=== PATIENT | male | born 1960 | race Caucasian/White ===

== ENCOUNTER 2021-08-05 20:22 | Inpatient (IN) | payer OTHER, SELFPAY ==
[~2021-08-05] VITALS: Ht 165.1 cm; Wt 85.7 kg
[2021-08-05 20:34] VITALS: BP 147/90
--- NOTE | 2021-08-05 20:45 | NUR ---
PT BROUGHT TO BED 11 VIA [facility]
[2021-08-05] MEDS ORDERED: ONDANSETRON 4 MG/2 ML VIAL IVP ONE (21:05)
[2021-08-05] MEDS ORDERED: MORPHINE SULFATE 4 MG/ML SYR IVP ONE (21:05)
[2021-08-05] MEDS ORDERED: NACL 0.9% 1,000 ML IV SCH (21:05)
--- NOTE | 2021-08-05 21:30 | NUR ---
received pt from EMS and placed to bed 11. pt currently a/o x 4, gcs 15. able to move all extremities freely. pt is a 61 year old male with hx of DM biba from home for c/o R hemisphere abd pain that started 1 week ago. per pt , was seen at [place] yesterday and dx of gallstones with rx of tylenol. sts no relief from tylenol. pt reports nausea but no vomiting. given 2mg zofran ODT en route by EMS with no relief. NAD at this time.
[2021-08-05 21:44] LABS: BASOPHILS % (AUTO) 0.2 % (0.0-2.0); HEMATOCRIT 42.7 % (36-52); HEMOGLOBIN 15.1 g/dL (12.0-18.0); LYMPHOCYTES # (AUTO) 0.5 K/uL (2.0-11.5); LYMPHOCYTES % (AUTO) 4.7 % (20.5-51.1); MEAN CORPUSCULAR HEMOGLOBIN 30 pg (27-31); MEAN CORPUSCULAR HGB CONC 35 g/dL (33-37); MEAN CORPUSCULAR VOLUME 85.7 fL (80-94); MONOCYTES # (AUTO) 0.3 K/uL (0.8-1.0); NEUTROPHILS # (AUTO) 9.4 K/uL (1.8-7.7); NEUTROPHILS % (AUTO) 92.1 % (42.2-75.2); PLATELET COUNT (AUTO) 150 K/uL (140-450); RED BLOOD CELL COUNT(AUTO) 4.98 MIL/uL (4.20-6.10); RED CELL DISTRIBUTION WIDTH 13.8 % (11.6-13.7); WHITE BLOOD COUNT (AUTO) 10.2 K/uL (4.8-10.8)
[2021-08-05 22:05] LABS: APPEARANCE,URINE CLEAR (CLEAR); BILIRUBIN,URINE NEGATIVE (NEGATIVE); BLOOD, URINE TRACE-L (NEGATIVE); COLOR,URINE YELLOW (YELLOW); LEUKOCYTE ESTERASE ,URINE NEGATIVE (NEGATIVE); NITRITE, URINE NEGATIVE (NEGATIVE); UGLUCOSE 3+ (NEGATIVE)
[2021-08-05 22:10] LABS: RBC,URINE 0-5 /HPF (0-5); WBC,URINE 0-5 /HPF (0-5)
[2021-08-05 22:12] LABS: ALBUMIN 3.6 g/dL (3.4-5.0); ANION GAP 11.7 (8-16); CARBON DIOXIDE 28.6 mmol/L (21-32); CREATININE 0.9 mg/dL (0.6-1.3); POTASSIUM 3.3 mmol/L (3.5-5.1); TOTAL BILIRUBIN 1.6 mg/dL (0.0-1.0)
[2021-08-05] MEDS ORDERED: KETOROLAC 15 MG/ML VIAL IVP ONE (22:50)
[2021-08-05] MEDS ORDERED: metroNIDAZOLE 500 MG/NS PREMIX 100 ML IV ONE (22:50)
[2021-08-05] MEDS ORDERED: NACL 0.9% 1,000 ML IV ONE (23:20)
[2021-08-05] MEDS ORDERED: cefTRIAXone 1,000 MG VIAL ONE (23:50)
--- NOTE | 2021-08-06 | NUR ---
NAD at this time. pt currently asleep. arousable via verbal stimuli. reports 5/10 pain still for R abd.
[2021-08-06] MEDS ORDERED: ACETAMINOPHEN 325 MG TAB PO PRN (00:50)
[2021-08-06] MEDS ORDERED: DEXTROSE 50% 50 ML SYR IVP PRN (00:50)
[2021-08-06] MEDS: NACL 0.9% 1,000 ML IV SCH ×3 (01:33→23:20)
--- NOTE | 2021-08-06 02:30 | NUR ---
pt denies any needs at this time. NAD. VSS
[2021-08-06] MEDS: metroNIDAZOLE 500 MG/NS PREMIX 100 ML IV SCH ×3 (05:08→23:52)
--- NOTE | 2021-08-06 05:30 | NUR ---
NAD VSS. asleep at this time. arousable via verbal stimuli.
--- NOTE | 2021-08-06 07:37 | NUR ---
REPORT RECEIVED FROM DOMINIQUE DEVLIN FOR TRANSFER OF CARE
[2021-08-06] MEDS: BLOOD GLUCOSE MONITORING 1 DEV DEV FS SCH ×6 (07:56→22:30)
--- NOTE | 2021-08-06 07:57 | NUR ---
PT SLEEPING, EASILY AROUSABLE, VSS, C/O ABD PAIN 9/10 TO RUQ.
[2021-08-06] MEDS: INSULIN LISPRO SLIDING SCALE 100 UNITS/ML VIAL SUBQ PRN ×2 (07:59→12:13)
[2021-08-06] MEDS: ONDANSETRON 4 MG/2 ML VIAL IVP PRN ×3 (08:17→14:39)
[2021-08-06] MEDS: MORPHINE SULFATE 4 MG/ML SYR IVP PRN (08:17)
[2021-08-06] MEDS ORDERED: fentaNYL citrate 0.05 MG/ML VIAL ONE ×2 (09:20→17:35)
[2021-08-06] MEDS ORDERED: PROPOFOL 200 MG/20 ML VIAL IV ONE (09:20)
[2021-08-06] MEDS ORDERED: MIDAZOLAM 2 MG/2 ML VIAL ONE (09:20)
[2021-08-06] MEDS ORDERED: SUCCINYLCHOLINE CHLORIDE 200 MG/10 ML VIAL IVP ONE ×2 (09:21→17:36)
[2021-08-06] MEDS ORDERED: BUPIVACAINE-MPF/EPI 0.25% 30 ML VIAL INJ ONE ×2 (09:34→17:49)
[2021-08-06] MEDS ORDERED: LIDOCAINE 1% 500 MG/50 ML VIAL ONE ×2 (09:34→17:49)
--- NOTE | 2021-08-06 09:42 | NUR ---
OR STAFF BEDSIDE EXPLAINING PROCEDURE TO PATIENT AT THIS TIME
--- NOTE | 2021-08-06 10:11 | NUR ---
pt taken to ct via kathy
--- NOTE | 2021-08-06 10:19 | NUR ---
PT RETURNED TO BED [address] V[address] [facility]
--- NOTE | 2021-08-06 13:13 | NUR ---
[facility].
--- NOTE | 2021-08-06 13:43 | NUR ---
PATIENT HAS BEEN SCREENED AND CATEGORIZED MODERATE NUTRITION RISK. PATIENT WILL BE SEEN WITHIN 3-5 DAYS OF ADMISSION. / [address]
[2021-08-06] MEDS ORDERED: MORPHINE SULFATE 2 MG/ML SYR ONE (14:06)
[2021-08-06] MEDS: MORPHINE SULFATE 2 MG/ML SYR IVP PRN (14:25)
--- NOTE | 2021-08-06 15:00 | NUR ---
PT RETURNED TO BED 11 FROM [facility] VIA [facility]
--- NOTE | 2021-08-06 18:20 | NUR ---
PT TAKEN TO SURGERY VIA [facility]
--- NOTE | 2021-08-06 18:25 | NUR ---
Patient will be admitted to care of DR. WORKMAN. Admited to MED-SURG. Will go to room OR. Belongings list completed. Report to OR NURSE.
[2021-08-06] MEDS ORDERED: SEVOFLURANE 250 ML BTL INH ONE (18:45)
[2021-08-06] MEDS ORDERED: HYDROmorphone PFS 2 MG/ML SYR ONE (18:53)
[2021-08-06] MEDS ORDERED: ROCURONIUM 50 MG/5 ML VIAL IV ONE (18:57)
[2021-08-06] MEDS ORDERED: ONDANSETRON 4 MG/2 ML VIAL ONE (19:15)
[2021-08-06] MEDS ORDERED: METOCLOPRAMIDE 10 MG/2 ML INJ VIAL ONE (19:15)
[2021-08-06] MEDS ORDERED: ALBUMIN HUMAN 5 % 250 ML IV ONE (21:03)
[2021-08-06] MEDS ORDERED: NEOSTIGMINE 1:1000 10 MG/10 ML VIAL ONE (21:20)
[2021-08-06] MEDS ORDERED: GLYCOPYRROLATE 0.2 MG/ML VIAL ONE ×3 (21:20)
[2021-08-06] MEDS ORDERED: MEPERIDINE 25 MG/ML SYR IVP PRN (21:25)
[2021-08-06] MEDS ORDERED: ONDANSETRON 4 MG/2 ML VIAL IVP PRN (21:25)
[2021-08-06] MEDS ORDERED: HYDROmorphone 1 MG/ML AMP IVP PRN (21:25)
[2021-08-06 23:00] VITALS: BP_SYST 122; BP_SYST 142; BP_DIAS 70; BP_DIAS 85
--- NOTE | 2021-08-06 23:00 | NUR ---
RECEIVED PT FROM OR - POST OPEN CHOLECYSTECTOMY W/ ABDL SURGICAL DRESSING DRY AND INTACT , W/ J VAC WITH DARK BLOODY DRAINAGE , ALTHOUGH PT STIL EASILY FALL BACK TO SLEEP BUT STILL CAN ANSWER QUESTION CORRECTLY EASILY AROUSABLE BY SOUNDS . IV SITE INTACT AND PATENT . ON TELE - TACHYCARDIC , O2 SAT WNL - ON O2 AT 2LPM . ADM. ASSESSMENT DONE . ON FALL RISK PROTOCOL AT THIS TIME - CALL LIGHT WITHIN REACH . W/ URINE FC DRAINING YELLOW U.O . WILL CONT. TO MONITOR .
[2021-08-06 23:08] LABS: BASOPHILS # (AUTO) 0.2 K/uL (0.00-0.22); BASOPHILS % (AUTO) 2.4 % (0.0-2.0); EOSINOPHILS % (AUTO) 0.1 % (0.0-4.0); HEMATOCRIT 33.9 % (36-52); HEMOGLOBIN 11.7 g/dL (12.0-18.0); LYMPHOCYTES # (AUTO) 0.4 K/uL (2.0-11.5); LYMPHOCYTES % (AUTO) 6.1 % (20.5-51.1); MEAN CORPUSCULAR HEMOGLOBIN 30 pg (27-31); MEAN CORPUSCULAR HGB CONC 35 g/dL (33-37); MEAN CORPUSCULAR VOLUME 87.6 fL (80-94); MONOCYTES # (AUTO) 0.3 K/uL (0.8-1.0); MONOCYTES % (AUTO) 4.5 % (1.7-9.3); NEUTROPHILS # (AUTO) 6.1 K/uL (1.8-7.7); NEUTROPHILS % (AUTO) 86.9 % (42.2-75.2); PLATELET COUNT (AUTO) 105 K/uL (140-450); RED BLOOD CELL COUNT(AUTO) 3.87 MIL/uL (4.20-6.10); WHITE BLOOD COUNT (AUTO) 7.1 K/uL (4.8-10.8)
[2021-08-07 00:24] LABS: ALBUMIN 2.7 g/dL (3.4-5.0); ANION GAP 14.5 (8-16); CARBON DIOXIDE 22.9 mmol/L (21-32); CREATININE 0.8 mg/dL (0.6-1.3); POTASSIUM 3.4 mmol/L (3.5-5.1); TOTAL BILIRUBIN 0.9 mg/dL (0.0-1.0)
--- NOTE | 2021-08-07 00:28 | NUR ---
CALL JUST TO CHECK PT'S STATUS AND PT'S LATEST CBC , TOTAL BILLIRUBIN - NO RESULT YET .
[2021-08-07] MEDS ORDERED: cefTRIAXone 1,000 MG VIAL ONE (01:10)
[2021-08-07 04:00] VITALS: BP 142/85
--- NOTE | 2021-08-07 04:00 | NUR ---
C/O PAIN BP 142/ 85 AZ 101 , AFEBRILE RR 20 , O2 SAT 97 % - WILL GIVE PAIN MED ORDERED .
[2021-08-07] MEDS: ONDANSETRON 4 MG/2 ML VIAL IVP PRN ×2 (04:27→21:27)
[2021-08-07] MEDS: MORPHINE SULFATE 4 MG/ML SYR IVP PRN ×5 (04:28→21:31)
[2021-08-07] MEDS: metroNIDAZOLE 500 MG/NS PREMIX 100 ML IV SCH ×3 (05:11→20:10)
--- NOTE | 2021-08-07 05:13 | NUR ---
BS 230 - WILL UPDATE THE DOCTOR - PT ONLY DRINKS WATER . - ON IVF NSS
--- NOTE | 2021-08-07 06:00 | NUR ---
AWAKE , BEARABLE PAIN HE SAID . CALL LIGHT WITHIN REACH .
[2021-08-07 07:18] LABS: BASOPHILS % (AUTO) 0.1 % (0.0-2.0); EOSINOPHILS % (AUTO) 0.1 % (0.0-4.0); HEMOGLOBIN 11.2 g/dL (12.0-18.0); LYMPHOCYTES # (AUTO) 0.3 K/uL (2.0-11.5); LYMPHOCYTES % (AUTO) 5.8 % (20.5-51.1); MEAN CORPUSCULAR HEMOGLOBIN 31 pg (27-31); MEAN CORPUSCULAR HGB CONC 35 g/dL (33-37); MEAN CORPUSCULAR VOLUME 87.2 fL (80-94); MONOCYTES # (AUTO) 0.4 K/uL (0.8-1.0); MONOCYTES % (AUTO) 6.7 % (1.7-9.3); NEUTROPHILS # (AUTO) 4.8 K/uL (1.8-7.7); NEUTROPHILS % (AUTO) 87.3 % (42.2-75.2); PLATELET COUNT (AUTO) 110 K/uL (140-450); RED BLOOD CELL COUNT(AUTO) 3.68 MIL/uL (4.20-6.10); WHITE BLOOD COUNT (AUTO) 5.5 K/uL (4.8-10.8)
--- NOTE | 2021-08-07 07:22 | NUR ---
ENDORSED TO DARRELL FOX , FOR CONT. OF CARE . Addendum: 08/07/21 at 0758 by Jo Acevedo RN PT IS STABLE CONDITION , AWAKE .
--- NOTE | 2021-08-07 07:30 | NUR ---
RECEIVED REPORT FROM HEATER FURNACE
[2021-08-07 07:37] LABS: ANION GAP 11.4 (8-16); CARBON DIOXIDE 26.4 mmol/L (21-32); CREATININE 0.7 mg/dL (0.6-1.3); POTASSIUM 3.8 mmol/L (3.5-5.1); TOTAL BILIRUBIN 0.5 mg/dL (0.0-1.0)
[2021-08-07 07:50] LABS: ALBUMIN 2.4 g/dL (3.4-5.0)
[2021-08-07 08:00] VITALS: BP 122/80
[2021-08-07] MEDS: MORPHINE SULFATE 2 MG/ML SYR IVP PRN (08:15)
[2021-08-07] MEDS: BLOOD GLUCOSE MONITORING 1 DEV DEV FS SCH ×4 (08:19→20:10)
[2021-08-07] MEDS: ENOXAPARIN 40 MG/0.4 ML SYR SUBQ SCH (09:53)
--- NOTE | 2021-08-07 10:00 | NUR ---
DR MCCLAIN CALLED, LASHAE RECEIVED AND CARRIED OUT
[2021-08-07] MEDS: INSULIN LISPRO SLIDING SCALE 100 UNITS/ML VIAL SUBQ PRN ×3 (11:28→20:16)
[2021-08-07 12:00] VITALS: BP 129/83
--- NOTE | 2021-08-07 12:30 | NUR ---
WOUND CARE DONE ON ABD SURGICAL WOUND
[2021-08-07] MEDS: NACL 0.9% 1,000 ML IV SCH (14:34)
--- NOTE | 2021-08-07 15:30 | NUR ---
RECEIVED BEDSIDE REPORT FROM DOMINIQUE RAMÍREZ FOR CONTINUITY OF CARE. PT IS STABLE. NO DISTRESS NOTED. PLAN OF CARE DISCUSSED. WILL CONTINUE TO MONITOR.
[2021-08-07 16:00] VITALS: BP 130/81
--- NOTE | 2021-08-07 17:26 | NUR ---
PT WAS GIVEN MORPHINE FOR PAIN. PT STATES PAIN AT A SCALE OF 10/10 IN THE ABDOMEN. BP WAS STABLE PRIOR TO ADMINISTRATION OF MEDICATION. WILL CONTINUE TO MONITOR.
--- NOTE | 2021-08-07 18:53 | NUR ---
PT WAS STABLE THROUGHOUT SHIFT. NO DISTRESS NOTED AT THIS TIME. WILL ENDORSE TO HOSPICE ADMITTING CLERK NURSE FOR CONTINUITY OF CARE AND DISCUSS PLAN OF CARE.
--- NOTE | 2021-08-07 19:23 | NUR ---
RECEIVED PT AAOX4 , NID - O2 SAT WNL , W/ SURGICAL DRESSING DRY AND INTACT , W/ 1 LEWIS VAC , W/ URINE FC DRAINING CLEAR U.O , IV SITE INTACT AND PATENT . BEARABLE PAIN HE SAID AT THIS TIME . PLAN OF CARE DISCUSSED AND VERBALIZE UNDERSTANDING , CALL LIGHT WITHIN REACH , WILL CONT. TO MONITOR .
[2021-08-07 20:00] VITALS: BP 135/85
--- NOTE | 2021-08-07 21:30 | NUR ---
BP 135/85 , CO 105 , O2 SAT 100 % - C/O PAIN - WILL MEDICATE ORDERED . Addendum: 08/07/21 at 2235 by Jo Acevedo RN ON SAT MONITOR - CALL LIGHT WITHIN REACH .
--- NOTE | 2021-08-07 22:26 | NUR ---
PER DR SARAHI Garza PT IS OK TO DOWNGRADE TO MS .
[2021-08-08] MEDS ORDERED: cefTRIAXone 1,000 MG VIAL ONE (00:19)
--- NOTE | 2021-08-08 03:30 | NUR ---
C/O PAIN , BP 134/77 , PR104 ,O2 SAT 97 % - WILL MEDICATE ORDERED
[2021-08-08] MEDS: MORPHINE SULFATE 4 MG/ML SYR IVP PRN ×4 (03:34→18:32)
[2021-08-08] MEDS: NACL 0.9% 1,000 ML IV SCH ×2 (04:31→15:20)
[2021-08-08] MEDS: metroNIDAZOLE 500 MG/NS PREMIX 100 ML IV SCH ×3 (04:32→21:09)
--- NOTE | 2021-08-08 06:00 | NUR ---
AWAKE , HE SAID BEARABLE PAIN , CALL LIGHT WITHIN REACH .
[2021-08-08] MEDS: BLOOD GLUCOSE MONITORING 1 DEV DEV FS SCH ×4 (06:44→21:06)
[2021-08-08] MEDS: INSULIN LISPRO SLIDING SCALE 100 UNITS/ML VIAL SUBQ PRN ×4 (06:45→21:07)
[2021-08-08 07:17] LABS: BASOPHILS % (AUTO) 0.2 % (0.0-2.0); EOSINOPHILS # (AUTO) 0.1 K/uL (0-0.4); HEMATOCRIT 28.7 % (36-52); HEMOGLOBIN 10.1 g/dL (12.0-18.0); LYMPHOCYTES # (AUTO) 0.5 K/uL (2.0-11.5); LYMPHOCYTES % (AUTO) 8.6 % (20.5-51.1); MEAN CORPUSCULAR HEMOGLOBIN 31 pg (27-31); MEAN CORPUSCULAR HGB CONC 35 g/dL (33-37); MEAN CORPUSCULAR VOLUME 86.5 fL (80-94); MONOCYTES # (AUTO) 0.4 K/uL (0.8-1.0); MONOCYTES % (AUTO) 7.6 % (1.7-9.3); NEUTROPHILS # (AUTO) 4.4 K/uL (1.8-7.7); NEUTROPHILS % (AUTO) 81.6 % (42.2-75.2); PLATELET COUNT (AUTO) 120 K/uL (140-450); RED BLOOD CELL COUNT(AUTO) 3.32 MIL/uL (4.20-6.10); RED CELL DISTRIBUTION WIDTH 13.7 % (11.6-13.7); WHITE BLOOD COUNT (AUTO) 5.4 K/uL (4.8-10.8)
--- NOTE | 2021-08-08 07:24 | NUR ---
ENDORSED - PT - STABLE .
--- NOTE | 2021-08-08 07:26 | NUR ---
RECEIVED PT FROM NIGHT RN, PT IS AWAKE AND LYING ON THE BED WITH ABDOMINAL INCISIONS AND LEWIS BULB IN PLACE, NO DRAIN NOTED, IV LINE NOTED ON THE RFA G. 18 WITH NS INFUSING AT 80ML/HR, INTACT, SIDE RAILS ARE UP AND CALL LIGHT WITHIN REACH, SAFETY PRECAUTION ENFORCED, PT IS ON O2 2L NC, NO SIGN OF DISTRESS NOTED AND WILL CONTINUE TO MONITOR PT.
[2021-08-08 08:00] VITALS: BP 132/84
[2021-08-08 08:12] LABS: ALBUMIN 2.2 g/dL (3.4-5.0); ANION GAP 11.2 (8-16); CARBON DIOXIDE 26.9 mmol/L (21-32); CREATININE 0.6 mg/dL (0.6-1.3); POTASSIUM 3.1 mmol/L (3.5-5.1); TOTAL BILIRUBIN 0.4 mg/dL (0.0-1.0)
[2021-08-08] MEDS: ENOXAPARIN 40 MG/0.4 ML SYR SUBQ SCH (08:47)
--- NOTE | 2021-08-08 08:47 | NUR ---
PT WAS GIVEN LOVENOX NOW.
--- NOTE | 2021-08-08 08:50 | NUR ---
PT WAS MEDICATED FOR PAIN RATE OF 8/10.
--- NOTE | 2021-08-08 12:10 | NUR ---
DR. MCCLAIN REMOVED THE LEWIS BULB NOW. DRESSING WAS PLACED ON RLQ.
--- NOTE | 2021-08-08 12:20 | NUR ---
JORGENSEN CATHETER WAS REMOVED NOW,800ML URINE IN BAG, PT WAS INSTRUCTED TO NOTIFY RN IF HE VOIDED AND MUST BE ABLE TO VOID NORMALLY WITHIN 6 HRS FROM THIS TIME, AND PT VERBALIZED UNDERSTANDING,GAVE URINAL ON BEDSIDE
[2021-08-08 12:27] VITALS: BP 147/90
--- NOTE | 2021-08-08 12:55 | NUR ---
PT WAS GIVEN INSULIN 4 UNITS ON THE LEFT DELTOID, FOR BLOOD GLUCOSE OF 232.
[2021-08-08] MEDS ORDERED: POTASSIUM CHLORIDE 10 MEQ TABER PO SCH (14:00)
--- NOTE | 2021-08-08 18:32 | NUR ---
PT WAS GIVEN PAIN MEDICATION NOW.
--- NOTE | 2021-08-08 19:45 | NUR ---
ENDORSED PT TO NIGHT RN FOR CONTINUITY OF CARE.
--- NOTE | 2021-08-08 19:46 | NUR ---
RECD. RESTING IN BED, AWAKE, A/OX4. RESPIRATION EVEN AND UNLABORED. IV OF NS INFUSING AT 80 ML/HR, RIGHT HAND G22. INCISION IN THE ABDOMEN (3) WITH NEAL, ALL DRY AND INTACT, OPEN TO AIR. ENCOURAGED TO GET OUT OF BED AND AMBULATED. ON BILATERAL LEG SEQUENTIALS. PAIN IN THE INCISION 2/10, AGGRAVATED BY MOVEMENTS. WILL MEDICATE PER MD ORDER.
[2021-08-08 20:00] VITALS: BP 128/71
[2021-08-08] MEDS: HYDROcodone/APAP 5/325 MG 1 TAB TAB PO PRN (21:01)
--- NOTE | 2021-08-08 21:30 | NUR ---
Patient's Plan of Care was discussed and reviewed with TRUCK STRIKER: JEROD HAIDER
--- NOTE | 2021-08-08 21:35 | NUR ---
SNACK GIVEN FOR THE NIGHT, ATE 100%.
--- NOTE | 2021-08-09 | NUR ---
SLEEPING COMFORTABLY IN BED, RESPIRATION EVEN AND UNLABORED. CALL LIGHT IN REACH.
[2021-08-09 02:44] VITALS: BP 140/89
[2021-08-09] MEDS: MORPHINE SULFATE 4 MG/ML SYR IVP PRN (02:53)
[2021-08-09] MEDS: NACL 0.9% 1,000 ML IV SCH (03:50)
--- NOTE | 2021-08-09 04:00 | NUR ---
STILL SLEEPING COMFORTABLY IN BED, NO APPEARANCE OF DISCOMFORT NOTED.
[2021-08-09] MEDS: metroNIDAZOLE 500 MG/NS PREMIX 100 ML IV SCH ×2 (05:30→12:36)
[2021-08-09] MEDS: BLOOD GLUCOSE MONITORING 1 DEV DEV FS SCH ×2 (05:55→12:07)
[2021-08-09] MEDS: INSULIN LISPRO SLIDING SCALE 100 UNITS/ML VIAL SUBQ PRN ×2 (05:57→12:19)
--- NOTE | 2021-08-09 07:00 | NUR ---
RESPIRATORY STATUS REMAIN STABLE. WILL ENDORSE TO AM SHIFT NURSE FOR CONTINUITY OF CARE.
--- NOTE | 2021-08-09 07:15 | NUR ---
RECEIVED REPORT FROM SURGICAL DRESSING MAKER NURSE FOR CONTINUITY OF CARE. PT IN BED AT THIS TIME RESTING. RESPIRATIONS ARE EVEN AND UNLABORED. NO SIGNS OF DISTRESS NOTED. NO COMPLAINTS OF PAIN OR DISCOMFORT AT THIS TIME. CALL LIGHT WITHIN REACH. ALL SAFETY MEASURES IN PLACE. WILL CONTINUE TO MONITOR.
[2021-08-09 07:34] LABS: BASOPHILS % (AUTO) 0.7 % (0.0-2.0); EOSINOPHILS # (AUTO) 0.2 K/uL (0-0.4); EOSINOPHILS % (AUTO) 3.7 % (0.0-4.0); HEMATOCRIT 27.8 % (36-52); HEMOGLOBIN 9.4 g/dL (12.0-18.0); LYMPHOCYTES # (AUTO) 0.6 K/uL (2.0-11.5); LYMPHOCYTES % (AUTO) 11.7 % (20.5-51.1); MEAN CORPUSCULAR HEMOGLOBIN 30 pg (27-31); MEAN CORPUSCULAR HGB CONC 34 g/dL (33-37); MEAN CORPUSCULAR VOLUME 87.9 fL (80-94); MONOCYTES # (AUTO) 0.4 K/uL (0.8-1.0); MONOCYTES % (AUTO) 9.1 % (1.7-9.3); NEUTROPHILS # (AUTO) 3.6 K/uL (1.8-7.7); NEUTROPHILS % (AUTO) 74.8 % (42.2-75.2); PLATELET COUNT (AUTO) 123 K/uL (140-450); RED BLOOD CELL COUNT(AUTO) 3.16 MIL/uL (4.20-6.10); RED CELL DISTRIBUTION WIDTH 13.7 % (11.6-13.7); WHITE BLOOD COUNT (AUTO) 4.8 K/uL (4.8-10.8)
[2021-08-09 07:54] LABS: CARBON DIOXIDE 29.1 mmol/L (21-32); CREATININE 0.5 mg/dL (0.6-1.3); POTASSIUM 3.1 mmol/L (3.5-5.1); TOTAL BILIRUBIN 0.4 mg/dL (0.0-1.0)
[2021-08-09 08:00] VITALS: BP 120/78
[2021-08-09] MEDS: ENOXAPARIN 40 MG/0.4 ML SYR SUBQ SCH (08:40)
--- NOTE | 2021-08-09 08:40 | NUR ---
ADMINISTERED ALL SCHEDULED MEDICATIONS. EDUCATED PT REGARDING MEDS ADMINISTERED. ANSWERED ALL QUESTIONS. PT VERBALIZED UNDERSTANDING OF ALL INFORMATION PROVIDED. WILL CONTINUE TO MONITOR.
--- NOTE | 2021-08-09 11:42 | NUR ---
PT REQUEST ASSISTANCE TO AMBULATE TO REST ROOM. PT UNABLE TO GET UP OUT OF BED, REQUIRED 2 PERSON ASSIST. ONCE PT ABLE TO GET UP, PT GAIT UNSTABLE. MADE AWARE. NEW ORDERS PLACED. WILL CONTINUE TO MONITOR.
[2021-08-09] MEDS: HYDROcodone/APAP 5/325 MG 1 TAB TAB PO PRN (12:01)
[2021-08-09 15:17] VITALS: BP 127/62
[2021-08-09] MEDS ORDERED: CIPR500T4 PO (16:13)
[2021-08-09] MEDS ORDERED: METR-520 PO (16:13)
[2021-08-09] MEDS ORDERED: ACET-9525 PO (16:14)
--- NOTE | 2021-08-09 16:46 | NUR ---
WENT OVER DISCHARGE PAPERWORK WITH PT AND FAMILY. ANSWERED ALL QUESTIONS. PT SIGNED ALL PAPERWORK. IV CATHETER REMOVED. IV CATHETER INTACT. ALL PERSONAL BELONGINGS TAKEN UPON DISCHARGE. PT LEFT UNIT VIA WHEELCHAIR.
--- NOTE | 2021-08-19 11:45 | NUR ---
MASOOD PLANNING GLASS TOUGHENING OPERATOR CALLED PATIENT'S PCP OFFICE AT TO MAKE A FOLLOW UP APPOINTMENT FOR PATIENT AFTER HIS DISCHARGE. SINCE HE MISSED HIS SCHEDULED APPOINTMENT WITH PCP ON 08/06/2021. PER FORREST PATIENT HAS MISSED SEVERAL APPOINTMENTS WITH PCP, SHOBHA EXPLAINED TO FORREST THAT PATIENT MISSED APPOINTMENT DUE TO STILL BEEN HOSPITALIZED AT [facility]. FORREST AGREED AND PROVIDED SCHEDULED APPOINTMENT FOR PATIENT BUT NOT UNTIL 09/02/21 AT 3:40PM DUE TO LIMITED SPACE. SHOBHA AGREED TO TAKE APPOINTMENT FOR PATIENT AND TO INFORMED PATIENT OF DELAYS. LOCATION FOR APPOINTMENT IS AT [address] [place] [address]. [address] [place] [address], [id number]. SHOBHA THANKED FORREST AND ENDED THE CALL. SHOBHA CALLED PATIENT PATIENT AT DISCUSS WITH PATIENT HIS NEED TO GO FOR A FOLLOW UP APPOINTMENT AND IF HE IS IN NEED TO RE-SCHEDULED TO CALL AT OFFICE. PATIENT AGREED TO GO TO HIS APPOINTMENT, SHOBHA PROVIDED PATIENT'S WITH ALL ADDRESS, TIME AND DATE FOR APPOINTMENT, HE THANKED SHOBHA AND ENDED THE CALL.
== END 2021-08-09 16:55 | disposition home or self-care (01) | DRG 414 ==
LOC: MED 20:22 → MTU 08-06 00:53 → OBSVTOIN 08-08 11:18
PROVIDERS: ADMIT Hospitalist; ATTEND Hospitalist
PROC: 0FJ44ZZ Inspection of Gallbladder, Percutaneous Endoscopic Approach (ICD-10-PCS; 2021-08-06)
PROC: 0DNU0ZZ Release Omentum, Open Approach (ICD-10-PCS; 2021-08-06)
PROC: BF141ZZ Fluoroscopy of Gallbladder, Bile Ducts and Pancreatic Ducts using Low Osmolar Contrast (ICD-10-PCS; 2021-08-06)
PROC: 0FT40ZZ Resection of Gallbladder, Open Approach (ICD-10-PCS; principal; 2021-08-06 16:00)
DX: K82.A1 Gangrene of gallbladder in cholecystitis (principal); K65.3 Choleperitonitis; D62 Acute posthemorrhagic anemia; E11.9 Type 2 diabetes mellitus without complications; I10 Essential (primary) hypertension; K66.0 Peritoneal adhesions (postprocedural) (postinfection); Z20.822 Contact with and (suspected) exposure to COVID-19; E78.5 Hyperlipidemia, unspecified; Z53.31 Laparoscopic surgical procedure converted to open procedure
CPT/HCPCS: G0378 ×58; 36415; 71045; 74150; 76705; 78445; 80053; 81001; 82374; 82948; 83605; 83690; 85025; 86886; 86900; 86901; 87040; 87081; 88304; 93005; 97163-GP; 97530; A9510; C1887; J0330; J0696; J1170; J1650; J1885; J2001; J2250; J2270; J2405; J2704; J2710; J2765; J3010; J3490; J7030; J7060; P9041; Q0092

== ENCOUNTER 2021-09-11 05:00 | Emergency (ER) | payer OTHER, SELFPAY ==
[~2021-09-11] VITALS: Ht 165.1 cm; Wt 78.0 kg
[~2021-09-11 05:00] MED LIST: ACET-9525 PO; CIPR500T4 PO; METR-520 PO
[2021-09-11 05:05] VITALS: BP 149/85
--- NOTE | 2021-09-11 05:06 | NUR ---
PT [facility] BLS. TAKEN TO BED 7
--- NOTE | 2021-09-11 05:07 | NUR ---
61 YO/M BIBA FROM HOME W C/O URINE FREQUENCY, BURNING, HEMATURIA W BLOOD CLOTS, + LOWER ABDOMINAL PAIN 9/10 STINGING/BURNING LIKE NON-RAD TRIGGERED W URINATION LASTING APPROX X1 HOUR EACH TIME, +WEAKNESS, AND LIGHTHEADEDNESS, +X1 DAY CONSTIPATION. PT DENIES ANY CHEST PAIN, SOB, N/V/D, FEVERS OR CHILLS BUT REPORTS FEELING WARM EARLIER IN THE DAY (DID NOT TAKE OWN TEMP). PT TOOK [facility]VIL YESTERDAY AT 2000 W MILD RELIEF OF SYMPTOMS. PT UNABLE TO PROVIDE URINE AT THIS TIME, WILL ATTEMPT SOON. PT LAYING IN BED LOCKED IN LOWEST POSITION W X2 SIDERAILS UP FOR PT SAFETY. PT PLACED ON GOWN AND CONNECTED TO MONITOR W VSS. PMH:DIABETES, GALL BLADDER REMOVAL JUL 2021 ALLERGIES: DENIES
[2021-09-11] MEDS ORDERED: ONDANSETRON 4 MG/2 ML VIAL IVP ONE (05:15)
[2021-09-11] MEDS ORDERED: MORPHINE SULFATE 2 MG/ML SYR IVP ONE (05:15)
[2021-09-11] MEDS ORDERED: NACL 0.9% 1,000 ML IV SCH (05:15)
--- NOTE | 2021-09-11 05:25 | NUR ---
PT SIGNED CT W CONTRAST OF ABDOMEN/PELVIS CONSENT.
[2021-09-11 05:31] LABS: BASOPHILS % (AUTO) 0.4 % (0.0-2.0); EOSINOPHILS # (AUTO) 0.1 K/uL (0-0.4); EOSINOPHILS % (AUTO) 0.8 % (0.0-4.0); HEMATOCRIT 36.7 % (36-52); HEMOGLOBIN 12.8 g/dL (12.0-18.0); LYMPHOCYTES # (AUTO) 0.7 K/uL (2.0-11.5); LYMPHOCYTES % (AUTO) 10.2 % (20.5-51.1); MEAN CORPUSCULAR HEMOGLOBIN 30 pg (27-31); MEAN CORPUSCULAR HGB CONC 35 g/dL (33-37); MEAN CORPUSCULAR VOLUME 86.1 fL (80-94); MONOCYTES # (AUTO) 0.4 K/uL (0.8-1.0); NEUTROPHILS # (AUTO) 5.9 K/uL (1.8-7.7); NEUTROPHILS % (AUTO) 83.6 % (42.2-75.2); PLATELET COUNT (AUTO) 134 K/uL (140-450); RED BLOOD CELL COUNT(AUTO) 4.26 MIL/uL (4.20-6.10); RED CELL DISTRIBUTION WIDTH 14.9 % (11.6-13.7); WHITE BLOOD COUNT (AUTO) 7.1 K/uL (4.8-10.8)
--- NOTE | 2021-09-11 05:52 | NUR ---
PT VOIDED APPROX 90CC OF DARK RED URINE NO CLOTS NOTED. NAMRATA MADE AWARE. Addendum: 09/11/21 at 0602 by CALEB PT REPORTS HE DID NOT FEEL PAIN WHEN URINATING THIS TIME.
[2021-09-11 06:15] LABS: ALBUMIN 3.7 g/dL (3.4-5.0); ANION GAP 11.4 (8-16); CARBON DIOXIDE 27.7 mmol/L (21-32); CREATININE 0.6 mg/dL (0.6-1.3); POTASSIUM 4.1 mmol/L (3.5-5.1)
--- NOTE | 2021-09-11 06:42 | NUR ---
PT VOIDED DENIES ANY PAIN WHEN VOIDING, DENIES ABDOMINAL PAIN.
--- NOTE | 2021-09-11 07:14 | NUR ---
PT RETURN FROM CT
--- NOTE | 2021-09-11 07:15 | NUR ---
Pt report given to JOSEFINA PEOPLES. Transfer of care at this time.
--- NOTE | 2021-09-11 07:16 | NUR ---
REPORT RECEIVED FROM DOMINIQUE GOMEZ FOR PATIENT CONTINUITY OF CARE.
--- NOTE | 2021-09-11 07:28 | NUR ---
PATIENT PROVIDED WITH NEW URINAL AT BEDSIDE, ALL PATIENT NEEDS MET AT THIS TIME. SAFETY PRECAUTIONS PUT INTO PLACE, WILL CONTINUE TO MONITOR.
[2021-09-11] MEDS ORDERED: ONDA8TAB87 PO (08:48)
[2021-09-11] MEDS ORDERED: IBUP-2213 PO (08:48)
[2021-09-11] MEDS ORDERED: CIPR500T4 PO (08:48)
[2021-09-11 09:00] VITALS: BP 117/78
--- NOTE | 2021-09-11 09:00 | NUR ---
Patient discharged with v/s stable. Written and verbal after care instructions given abdominal pain and UTI and explained. Patient alert, oriented and verbalized understanding of instructions. Ambulatory with steady gait. All questions addressed prior to discharge. ID band removed. Patient advised to follow up with PMD. Rx of Ciprofloxacin, Ibuprofen, and zofran given.
--- NOTE | 2021-09-11 09:47 | NUR ---
The patient's care was reviewed and supervised by Lois Quezada RN.
[2021-09-11 15:18] LABS: BILIRUBIN,URINE 1+ (NEGATIVE); BLOOD, URINE 3+ (NEGATIVE); LEUKOCYTE ESTERASE ,URINE 2+ (NEGATIVE); NITRITE, URINE POSITIVE (NEGATIVE); PH,URINE 5.5 (5.0-9.0); UGLUCOSE NEGATIVE (NEGATIVE)
[2021-09-11 15:20] LABS: APPEARANCE,URINE CLOUDY (CLEAR); COLOR,URINE BROWN (YELLOW)
[2021-09-11 15:33] LABS: RBC,URINE TOO NUMEROUS TO COUN /HPF (0-5); WBC,URINE TOO MANY TO COUNT /HPF (0-5)
== END 2021-09-11 09:00 | disposition home or self-care (01) ==
LOC: MED 05:00
DX: N39.0 Urinary tract infection, site not specified (principal); R11.2 Nausea with vomiting, unspecified; E11.9 Type 2 diabetes mellitus without complications; Z79.899 Other long term (current) drug therapy; Z79.2 Long term (current) use of antibiotics; Z79.1 Long term (current) use of non-steroidal anti-inflammatories (NSAID); Z79.891 Long term (current) use of opiate analgesic
CPT/HCPCS: 36415; 74177; 80053; 81001; 83605; 83690; 85025; 87040; 87086; 96361; 96374; 96375; 99285; J2270; J2405; J7030; Q9967

== ENCOUNTER 2022-08-15 12:14 | Emergency (ER) | payer OTHER ==
[~2022-08-15] VITALS: Ht 160 cm; Wt 80.7 kg
[~2022-08-15 12:14] MED LIST changes: +IBUP-2213 PO; +ONDA8TAB87 PO
[2022-08-15 12:31] VITALS: BP 150/83
[2022-08-15 13:37] LABS: APPEARANCE,URINE CLEAR (CLEAR); BILIRUBIN,URINE NEGATIVE (NEGATIVE); BLOOD, URINE TRACE-I (NEGATIVE); COLOR,URINE YELLOW (YELLOW); LEUKOCYTE ESTERASE ,URINE TRACE (NEGATIVE); NITRITE, URINE POSITIVE (NEGATIVE); UGLUCOSE >=1000 (NEGATIVE)
[2022-08-15 13:43] LABS: BASOPHILS % (AUTO) 0.9 % (0.0-2.0); EOSINOPHILS # (AUTO) 0.1 K/uL (0-0.4); EOSINOPHILS % (AUTO) 1.4 % (0.0-4.0); HEMATOCRIT 43.9 % (36-52); HEMOGLOBIN 15.3 g/dL (12.0-18.0); LYMPHOCYTES # (AUTO) 1.2 K/uL (2.0-11.5); LYMPHOCYTES % (AUTO) 26.3 % (20.5-51.1); MEAN CORPUSCULAR HEMOGLOBIN 30 pg (27-31); MEAN CORPUSCULAR HGB CONC 35 g/dL (33-37); MEAN CORPUSCULAR VOLUME 85.3 fL (80-94); MONOCYTES # (AUTO) 0.2 K/uL (0.8-1.0); MONOCYTES % (AUTO) 5.1 % (1.7-9.3); NEUTROPHILS % (AUTO) 66.3 % (42.2-75.2); PLATELET COUNT (AUTO) 197 K/uL (140-450); RED BLOOD CELL COUNT(AUTO) 5.15 MIL/uL (4.20-6.10); RED CELL DISTRIBUTION WIDTH 13.3 % (11.6-13.7); WHITE BLOOD COUNT (AUTO) 4.6 K/uL (4.8-10.8)
[2022-08-15 13:48] LABS: OTHER CASTS, URINE None Seen /LPF (None Seen); RBC,URINE 0-5 /HPF (0-5); WBC,URINE 0-5 /HPF (0-5)
--- NOTE | 2022-08-15 13:57 | NUR ---
PT AMBULATED TO BED 11
--- NOTE | 2022-08-15 14:00 | NUR ---
62/M WALKED IN C/O PELVIC PAIN X 2 MONTHS. PT REPORTS SUSPICION FOR BLADDER INFECTION. DENIES HEMATURIA OR DYSURIA. AAO4, AMBULATORY, VITALS STABLE, ON ROOM AIR. NKA PMH: DM
[2022-08-15 14:11] LABS: ALBUMIN 4.4 g/dL (3.4-5.0); ANION GAP 11.5 (8-16); CREATININE 0.8 mg/dL (0.6-1.3); POTASSIUM 4.5 mmol/L (3.5-5.1); TOTAL BILIRUBIN 0.6 mg/dL (0.0-1.0)
--- NOTE | 2022-08-15 15:45 | NUR ---
ABRASIVE GRADER AT BEDSIDE
[2022-08-15] MEDS ORDERED: CIPR500T9 PO (16:23)
[2022-08-15] MEDS ORDERED: LOTC TP (16:23)
[2022-08-15 16:30] VITALS: BP 144/87
== END 2022-08-15 16:30 | disposition home or self-care (01) ==
LOC: MED 12:14
DX: N30.00 Acute cystitis without hematuria (principal); N48.1 Balanitis; E11.9 Type 2 diabetes mellitus without complications; Z79.4 Long term (current) use of insulin; Z79.899 Other long term (current) drug therapy; Z90.49 Acquired absence of other specified parts of digestive tract
CPT/HCPCS: 36415; 74177; 80053; 81001; 83605; 83690; 85025; 87040; 99285; Q9967

== ENCOUNTER 2022-09-26 13:46 | Emergency (ER) | payer OTHER ==
[~2022-09-26] VITALS: Ht 170.2 cm; Wt 80.3 kg
[~2022-09-26 13:46] MED LIST changes: +CIPR500T9 PO; +LOTC TP
[2022-09-26 13:56] VITALS: BP 178/104
[2022-09-26] MEDS ORDERED: ONDANSETRON 4 MG ODT PO ONE (14:15)
--- NOTE | 2022-09-26 15:00 | NUR ---
C/O LEFT EAR ACHEX3 DAYS AND [id number]. BS 277. ACTIVELY VOMITING IN TRIAGE, FLUIDS NO BLOOD NKA PMH: DM
[2022-09-26] MEDS ORDERED: IBUP-2213 PO (15:56)
[2022-09-26] MEDS ORDERED: ONDA8TAB87 PO (15:56)
--- NOTE | 2022-09-26 16:00 | NUR ---
Patient discharged with v/s stable. Written and verbal after care instructions ABOUT NV given and explained. Patient alert, oriented and verbalized understanding of instructions. Ambulatory with steady gait. All questions addressed prior to discharge. ID band removed. Patient advised to follow up with PMD. Rx of ZOFRAN ODT, IBUPROFEN given. Patient educated on indication of medication including possible reaction and side effects. Opportunity to ask questions provided and answered.
== END 2022-09-26 16:00 | disposition home or self-care (01) ==
LOC: MED 13:46
DX: H92.02 Otalgia, left ear (principal); R11.2 Nausea with vomiting, unspecified; E11.9 Type 2 diabetes mellitus without complications; Z79.4 Long term (current) use of insulin; Z79.899 Other long term (current) drug therapy; Z90.49 Acquired absence of other specified parts of digestive tract
CPT/HCPCS: 99283; Q0162

== ENCOUNTER 2022-10-08 12:38 | Emergency (ER) | payer OTHER ==
[~2022-10-08] VITALS: Ht 165.1 cm; Wt 80.9 kg
[2022-10-08 12:50] VITALS: BP 130/80
[2022-10-08] MEDS ORDERED: IBUPROFEN 600 MG TAB PO ONE (13:40)
[2022-10-08] MEDS ORDERED: MECLIZINE 25 MG TAB PO ONE (13:40)
[2022-10-08] MEDS ORDERED: ACETAMINOPHEN EXTRA STRENGTH 500 MG TAB PO ONE (13:40)
[2022-10-08] MEDS ORDERED: LIDOCAINE MPF 1% 10 MG/ML VIAL INJ ONE (14:15)
[2022-10-08 14:16] LABS: BASOPHILS % (AUTO) 0.4 % (0.0-2.0); EOSINOPHILS # (AUTO) 0.1 K/uL (0-0.4); EOSINOPHILS % (AUTO) 1.9 % (0.0-4.0); HEMATOCRIT 40.2 % (36-52); LYMPHOCYTES % (AUTO) 16.5 % (20.5-51.1); MEAN CORPUSCULAR HEMOGLOBIN 30 pg (27-31); MEAN CORPUSCULAR HGB CONC 35 g/dL (33-37); MEAN CORPUSCULAR VOLUME 86.1 fL (80-94); MONOCYTES # (AUTO) 0.3 K/uL (0.8-1.0); MONOCYTES % (AUTO) 4.5 % (1.7-9.3); NEUTROPHILS # (AUTO) 4.9 K/uL (1.8-7.7); NEUTROPHILS % (AUTO) 76.7 % (42.2-75.2); PLATELET COUNT (AUTO) 250 K/uL (140-450); RED BLOOD CELL COUNT(AUTO) 4.67 MIL/uL (4.20-6.10); RED CELL DISTRIBUTION WIDTH 13.9 % (11.6-13.7); WHITE BLOOD COUNT (AUTO) 6.4 K/uL (4.8-10.8)
[2022-10-08 14:31] LABS: ALBUMIN 3.9 g/dL (3.4-5.0); ANION GAP 10.6 (8-16); CARBON DIOXIDE 28.6 mmol/L (21-32); CREATININE 0.8 mg/dL (0.6-1.3); POTASSIUM 4.2 mmol/L (3.5-5.1); TOTAL BILIRUBIN 0.5 mg/dL (0.0-1.0)
[2022-10-08] MEDS ORDERED: MECL-303 PO (15:00)
[2022-10-08] MEDS ORDERED: ACET-10509 PO (15:00)
--- NOTE | 2022-10-08 15:14 | NUR ---
62/M PRESENTS TO ED WITH C/O RIGHT SIDED RIB PAIN AND LEFT HAND LACERATION S/P TRIP AND FALL AT HOME. PATIENT DENIES HEAD OR NECK INJURY, BLEEDING CONTROLLED TO HAND. PATIENT REPORTS RECENT EPISODES OF DIZZINESS, DENIES CP, SOB OR VISION CHANGES.
[2022-10-08 15:59] VITALS: BP 139/76
--- NOTE | 2022-10-08 15:59 | NUR ---
Patient discharged with v/s stable. Written and verbal after care instructions ABOUT LACERATION CARE given and explained. Patient alert, oriented and verbalized understanding of instructions. Ambulatory with steady gait. All questions addressed prior to discharge. ID band removed. Patient advised to follow up with PMD. Rx of TYLENOL EXTRA STRENGTH, ANTIVERT given. Patient educated on indication of medication including possible reaction and side effects. Opportunity to ask questions provided and answered.
== END 2022-10-08 15:59 | disposition home or self-care (01) ==
LOC: MED 12:38
DX: S61.215A Laceration without foreign body of left ring finger without damage to nail, initial encounter (principal); S60.411A Abrasion of left index finger, initial encounter; S60.413A Abrasion of left middle finger, initial encounter; R42 Dizziness and giddiness; E11.9 Type 2 diabetes mellitus without complications; Z79.899 Other long term (current) drug therapy; Z79.1 Long term (current) use of non-steroidal anti-inflammatories (NSAID); Z79.2 Long term (current) use of antibiotics; Z79.891 Long term (current) use of opiate analgesic; W18.39XA Other fall on same level, initial encounter; Y93.01 Activity, walking, marching and hiking; Y92.89 Other specified places as the place of occurrence of the external cause; Y99.8 Other external cause status
CPT/HCPCS: 12001; 36415; 71101; 80053; 85025; 90471; 90715; 99284; J2001; J8597

== ENCOUNTER 2023-04-03 20:40 | Emergency (ER) | payer OTHER ==
[~2023-04-03] VITALS: Ht 165.1 cm; Wt 79.4 kg
[~2023-04-03 20:40] MED LIST changes: +ACET-10509 PO; +MECL-303 PO
[2023-04-03 20:56] VITALS: BP 121/72; PULSE 90; RESP 20; TEMP 98.1; O2SAT 90
[2023-04-03 21:35] VITALS: BP 149/89; PULSE 80; RESP 16; TEMP 97.4; O2SAT 98
[2023-04-03] MEDS ORDERED: KETOROLAC 60 MG/2 ML VIAL IM ONE (21:50)
[2023-04-03] MEDS ORDERED: ACET-10509 PO (22:56)
[2023-04-03] MEDS ORDERED: METH-1681 PO (22:56)
[2023-04-03] MEDS ORDERED: IBUP-2213 PO (22:56)
[2023-04-03 23:05] VITALS: BP 135/89; PULSE 80; RESP 16; TEMP 97.4; O2SAT 98
== END 2023-04-03 23:05 | disposition home or self-care (01) ==
LOC: MED 20:40
DX: M54.16 Radiculopathy, lumbar region (principal); E11.9 Type 2 diabetes mellitus without complications; Z79.899 Other long term (current) drug therapy
CPT/HCPCS: 81002; 96372; 99283; J1885